=== PATIENT | male | born 1985 | race Caucasian/White ===

== ENCOUNTER 2021-07-05 14:46 | Emergency (ER) | payer BC, OTHER ==
[2021-07-05 15:13] VITALS: BP 135/85; PULSE 94
--- NOTE | 2021-07-05 15:16 | EDM.PDOC ---
ED HPI GENERAL MEDICAL PROBLEM - General Chief Complaint: General Stated Complaint: NECK/BACK Time Seen by Provider: 07/05/21 15:00 Source of Information: Reports: Patient History Limitations: Reports: No Limitations - History of Present Illness INITIAL COMMENTS - FREE TEXT/NARRATIVE: Pipo is a 35 yo male who presents to the ED with complaints of right sided numbness/pain/tingling after sustaining a fall. 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 Admits he was tied off with safety harness and the rope holding up the platform he was on broke. He states he fell about 12 ft landing akwardly on his neck/head he thinks. He denies any loss of consciousness. Admits he is able to stand and walk but has continuous parathesias. States his worse pain is in the perineum area. Denies any blood thinners. Was able to get down after a sybil came up with a new rope. Right Pain Score (Numeric/FACES): 6 - Related Data Allergies Allergy/AdvReac Type Severity Reaction Status Date / Time bee venom protein (honey bee) Allergy Anaphylactic Verified 07/05/21 14:56 Shock Home Meds: Home Meds . [No Known Home Meds] 07/05/21 [History] Past Medical History HEENT History: Reports: None Cardiovascular History: Reports: None Respiratory History: Reports: None Gastrointestinal History: Reports: None Genitourinary History: Reports: None Neurological History: Reports: Seizure Psychiatric History: Reports: None Endocrine/Metabolic History: Reports: None Social & Family History - Tobacco Use Tobacco Use Within Last Twelve Months: No - Alcohol Use Alcohol Use History: No - Recreational Drug Use Recreational Drug Use: Yes Drug Use in Last 12 Months: Yes Recreational Drug Type: Reports: Marijuana/Hashish (Medical for history of seizures) ED ROS GENERAL - Review of Systems Review Of Systems: See Below Constitutional: Reports: No Symptoms HEENT: Reports: No Symptoms. Denies: Vision Change Respiratory: Reports: No Symptoms Cardiovascular: Reports: No Symptoms GI/Abdominal: Reports: Nausea, Vomiting (X 1 afterwards) : Reports: No Symptoms Musculoskeletal: Reports: Neck Pain, Back Pain, Foot Pain Skin: Reports: No Symptoms Neurological: Reports: Headache, Numbness, Paresthesia, Seizure (prior history was on phenobarbital and benzodiazapines. ), Tingling. Denies: Dizziness, Difficulty Walking, Gait Disturbance Psychiatric: Reports: No Symptoms ED EXAM, GENERAL - Physical Exam Exam: See Below Exam Limited By: No Limitations General Appearance: Alert, No Apparent Distress Eye Exam: Bilateral Eye: EOMI, Normal Inspection, PERRL Ears: Normal External Exam, Normal Canal, Hearing Grossly Normal, Normal TMs Nose: Normal Inspection, Normal Mucosa, No Blood Throat/Mouth: Normal Inspection, Normal Lips, Normal Teeth, Normal Oropharynx, Normal Voice, No Airway Compromise Head: Atraumatic, Normocephalic Neck: Normal Inspection, Supple, Full Range of Motion, Tender Lateral Respiratory/Chest: No Respiratory Distress, Lungs Clear, Normal Breath Sounds, No Accessory Muscle Use Cardiovascular: Normal Peripheral Pulses, Regular Rate, Rhythm, No Edema, No Murmur GI/Abdominal: Normal Bowel Sounds, Soft, No Organomegaly, No Distention, Pelvis Stable Back Exam: Decreased Range of Motion, Paraspinal Tenderness, Vertebral Tenderness Extremities: Normal Inspection, Non-Tender, No Pedal Edema Neurological: Alert, Oriented, Normal Cognition, Normal Gait, Normal Reflexes, No Motor/Sensory Deficits Psychiatric: Normal Affect, Normal Mood Skin Exam: Warm, Dry, Intact, Normal Color, No Rash Course - Vital Signs Last Recorded V/S: Last Vital Signs Temp 97.9 F 07/05/21 14:57 Pulse 94 07/05/21 14:57 Resp 20 07/05/21 14:57 BP 135/85 07/05/21 14:57 Pulse Ox 99 07/05/21 14:57 - Orders/Labs/Meds Orders: Active Orders 24 hr Category Date Time Status Cervical Spine wo Cont [CT] Stat Exams 07/05/21 15:11 Taken Head wo Cont [CT] Stat Exams 07/05/21 15:11 Taken Lumbar Spine wo Cont [CT] Stat Exams 07/05/21 15:11 Taken Thoracic Spine wo Cont [CT] Stat Exams 07/05/21 15:11 Taken Acetaminophen/HYDROcodone [Take Home: Acetaminophen/ Med 07/05/21 17:31 Once HYDROcod, 2 Tab Pack] 3 packet PO ONETIME ONE Ketorolac [Take Home: Ketorolac 10 MG, 4 Tab Pack] Med 07/05/21 17:31 Once 2 packet PO ONETIME ONE Medication Orders Hydrocodone Bitart/Acetaminophen (Take Home: Acetaminophen/Hydrocodone 325-5 Mg, 2 Tab Pack) 3 packet PO ONETIME ONE Stop: 07/05/21 17:32 Labs: Laboratory Tests 07/05/21 07/05/21 07/05/21 Range/Units 15:23 15:23 15:23 WBC 7.9 (4.0-11.0) 10^3/uL RBC 5.20 (4.50-6.00) x10^6/uL Hgb 15.0 (14.0-18.0) g/dL Hct 43.8 (42.0-52.0) % MCV 84.2 (83.0-97.0) fL MCH 28.8 (27.0-32.0) pg MCHC 34.2 (32.0-36.0) g/dL RDW Coeff of Adela 13.1 (11.0-15.0) % Plt Count 336 (150-400) 10^3/uL Immature Gran % (Auto) 0.1 (0.0-4.9) % Neut % (Auto) 57.9 (41-71) % Lymph % (Auto) 30.3 (24-44) % Whitfield % (Auto) 9.1 (0-10) % Eos % (Auto) 2.0 (0-6) % Baso % (Auto) 0.6 (0-1) % Neut # (Auto) 4.57 (1.80-8.00) x10^3/uL Lymph # (Auto) 2.40 (0.60-5.00) 10^3/uL Whitfield # (Auto) 0.72 (0.00-1.50) 10^3/uL Eos # (Auto) 0.16 (0.00-1.50) 10^3/uL Baso # (Auto) 0.05 (0.00-0.50) 10^3/uL Immature Gran # (Auto) 0.01 (0.00-0.49) 10^3/uL PT 11.2 (9.7-12.3) SEC INR 1.03 (0.92-1.18) Sodium 144 (136-145) mEq/L Potassium 3.6 (3.5-5.0) mEq/L Chloride 105 (98-106) mEq/L Carbon Dioxide 24 (21-32) mmol/L BUN 13 (7-18) mg/dL Creatinine 0.9 (0.7-1.3) mg/dL Est Cr Clr Drug Dosing 126.94 mL/min Estimated GFR (MDRD) > 60 (>=60) mL/min Glucose 94 (75-99) mg/dL Calcium 9.2 (8.4-10.1) mg/dL Total Bilirubin 0.4 (0.0-1.0) mg/dL AST 23 (15-37) U/L ALT 29 (12-78) U/L Alkaline Phosphatase 75 (46-116) U/L Creatine Kinase 266 H (35-232) U/L Total Protein 8.1 (6.4-8.2) g/dL Albumin 4.5 (3.4-5.0) g/dL Meds: Medications Generic Name Dose Route Start Last Admin Trade Name Freq PRN Reason Stop Dose Admin Hydrocodone Bitart/Acetaminophen 3 packet 07/05/21 17:31 Take Home: Acetaminophen/Hydrocodone 325-5 Mg, 2 Tab Pack PO 07/05/21 17:32 ONETIME ONE Discontinued Medications Generic Name Dose Route Start Last Admin Trade Name Freq PRN Reason Stop Dose Admin Morphine Sulfate 4 mg 07/05/21 16:44 07/05/21 16:49 Morphine 2 Mg/Ml Syringe IM 07/05/21 16:45 4 mg ONETIME ONE Administration Departure - Departure Time of Disposition: 17:38 Disposition: Home, Self-Care 01 Clinical Impression: Fall from height of greater than 3 feet Fracture of sacrum Qualifiers: Encounter type: initial encounter Zone of sacrum fracture: zone I of sacrum Fracture type: closed Fracture alignment: nondisplaced Qualified Code(s): S32.110A - Nondisplaced Zone I fracture of sacrum, initial encounter for closed fracture - Discharge Information Instructions: Simple Pelvic Fracture, Adult Forms: ED Department Discharge Additional Instructions: 1) Pana 5/325 - 1 tablet every 6 hours as needed for break thru pain, take home packs provided 2) Toradol 10mg - 1 tablet every 8 hours as needed for pain/inflammation 3) Advise not taking any narcotics during or prior to work 4) May ice 20 minutes at a time, 4-5 times a day for first couple of days 5) If needing medication while working, encourage Tylenol and ibuprofen as directed on bottles. Do not take more than 4000mg of Tylenol in 24 hours. 6) Follow up if symptoms persist or worsening symptoms. If any bowel or bladder dysfunction as we discuss, need to return right away. Sepsis Event Note (ED) - Evaluation Sepsis Screening Result: No Definite Risk - Focused Exam Vital Signs: Vital Signs Temp Pulse Resp BP Pulse Ox 07/05/21 14:57 97.9 F 94 20 135/85 99 - Problem List & Annotations (1) Fall from height of greater than 3 feet SNOMED Code(s): 2199991 Code(s): W17.89XA - OTHER FALL FROM ONE LEVEL TO ANOTHER, INITIAL ENCOUNTER Status: Acute (2) Fracture of sacrum SNOMED Code(s): 776803189 Code(s): S32.10XA - UNSP FRACTURE OF SACRUM, INIT ENCNTR FOR CLOSED FRACTURE Status: Acute Qualifiers: Encounter type: initial encounter Zone of sacrum fracture: zone I of sacrum Fracture type: closed Fracture alignment: nondisplaced Qualified Code(s): S32.110A - Nondisplaced Zone I fracture of sacrum, initial encounter for closed fracture - My Orders Last 24 Hours: My Active Orders 07/05/21 15:11 Cervical Spine wo Cont [CT] Stat Head wo Cont [CT] Stat Lumbar Spine wo Cont [CT] Stat Thoracic Spine wo Cont [CT] Stat 07/05/21 17:31 Acetaminophen/HYDROcodone [Take Home: Acetaminophen/HYDROcod, 2 Tab Pack] 3 packet PO ONETIME ONE Ketorolac [Take Home: Ketorolac 10 MG, 4 Tab Pack] 2 packet PO ONETIME ONE - Assessment/Plan Last 24 Hours: My Active Orders 07/05/21 15:11 Cervical Spine wo Cont [CT] Stat Head wo Cont [CT] Stat Lumbar Spine wo Cont [CT] Stat Thoracic Spine wo Cont [CT] Stat 07/05/21 17:31 Acetaminophen/HYDROcodone [Take Home: Acetaminophen/HYDROcod, 2 Tab Pack] 3 packet PO ONETIME ONE Ketorolac [Take Home: Ketorolac 10 MG, 4 Tab Pack] 2 packet PO ONETIME ONE Plan: CT head, cervical, thoracic spine were unremarkable. CT of the lumbar spine did question nondisplaced fractures of the sacral ala vs motion artifact. Discussed findings with Pipo. Initially we were going to give patient 1 Liter of fluids and IV pain medications. Unfortunately there was a miscommunication. Patient declined fluids. I did apologize to patient for the misunderstanding. Patient did receive IM Morphine, which did give him mild relief. Patient was ambulatory without difficulty. See additional instructions.
[2021-07-05 15:47] LABS: CHLORIDE,CL 105 mEq/L (98-106); SODIUM,NA 144 mEq/L (136-145)
[2021-07-05] MEDS ORDERED: Morphine 2 MG/ML SYRINGE IM ONE (16:44)
[2021-07-05] MEDS ORDERED: Take Home: Acetaminophen/HYDROcodone 325-5 MG, 2 Tab Pack ONE (17:10)
[2021-07-05] MEDS ORDERED: Take Home: Acetaminophen/HYDROcodone 325-5 MG, 2 Tab Pack PO ONE (17:31)
[2021-07-05] MEDS ORDERED: Take Home: Ketorolac 10 MG Tab, 4 Tab Pack PO ONE (17:31)
== END 2021-07-05 17:50 | disposition home or self-care (01) ==
LOC: CC.ED 14:46
DX: S32.110A Nondisplaced Zone I fracture of sacrum, initial encounter for closed fracture (principal); Z91.030 Bee allergy status; W17.89XA Other fall from one level to another, initial encounter
CPT/HCPCS: 36415; 70450; 72125; 72128; 72131; 80053; 82550; 85025; 85610; 96372; 99284-25; A9270-GY; J2270